=== PATIENT | female | born 1945 | race Caucasian/White ===

== ENCOUNTER 2019-05-27 12:46 | Emergency (ER) | payer MEDICARE, OTHER ==
[2019-05-27] MEDS ORDERED: Nitroglycerin 0.4 MG Tab.SL SL ONE (12:58)
[2019-05-27] MEDS ORDERED: Sodium Chloride 0.9% 1,000 ML IV ONE (13:03)
--- NOTE | 2019-05-27 13:40 | EDM.PDOC ---
ED HPI GENERAL MEDICAL PROBLEM - General Chief Complaint: Chest Pain Stated Complaint: MAYBE HEART ATTACK Time Seen by Provider: 05/27/19 13:37 Source of Information: Reports: Patient History Limitations: Reports: No Limitations - History of Present Illness INITIAL COMMENTS - FREE TEXT/NARRATIVE: sudden onset mid chest heaviness starting from her back going to the front with sweating about 1 1/2 hours ago. denies prior h/o heart problems. been using lot of motrin post dental procedures last week. Middle Chest Pain Score (Numeric/FACES): 5 - Related Data Allergies Allergy/AdvReac Type Severity Reaction Status Date / Time cefdinir [From Omnicef] Allergy Unknown Hives Verified 05/27/19 14:32 codeine Allergy Unknown ITCHING,INT Verified 05/27/19 14:32 OLERENCE Salicylates * [Salicylates] AdvReac Unknown GI Upset Verified 05/27/19 14:32 Home Meds: Home Meds Ibuprofen 400 mg PO ASDIRECTED PRN 05/27/19 [History] Levothyroxine 75 mcg PO DAILY 05/27/19 [History] atorvaSTATin [Lipitor] 40 mg PO BEDTIME 05/27/19 [History] ED ROS GENERAL - Review of Systems Review Of Systems: Comprehensive ROS is negative, except as noted in HPI. ED EXAM, GENERAL - Physical Exam Exam: See Below Exam Limited By: No Limitations General Appearance: Alert, WD/WN, Anxious, Moderate Distress Ears: Hearing Grossly Normal Throat/Mouth: Normal Voice, No Airway Compromise Head: Atraumatic Neck: Non-Tender, Full Range of Motion Respiratory/Chest: No Respiratory Distress, Rhonchi Cardiovascular: Regular Rate, Rhythm GI/Abdominal: Soft, Non-Tender Neurological: Alert, Oriented, Normal Cognition, Normal Gait, No Motor/Sensory Deficits Psychiatric: Flat Affect Skin Exam: Warm, Dry, Normal Color Lymphatic: No Adenopathy Course - Vital Signs Last Recorded V/S: Last Vital Signs Temp 35.7 C L 05/27/19 12:47 Pulse 55 L 05/27/19 12:47 Resp 14 05/27/19 12:47 BP 112/64 05/27/19 13:05 Pulse Ox 100 05/27/19 12:47 - Orders/Labs/Meds Orders: Active Orders 24 hr Category Date Time Status EKG Documentation Completion [RC] STAT Care 05/27/19 13:01 Active Chest w Cont [CT] Urgent Exams 05/27/19 14:07 Taken Labs: Laboratory Tests 05/27/19 05/27/19 05/27/19 Range/Units 12:59 12:59 12:59 WBC 8.7 (5.0-10.0) 10^3/uL RBC 5.05 (4.2-5.4) 10^6/uL Hgb 14.7 (12.0-16.0) g/dL Hct 43.7 (37.0-47.0) % MCV 86.5 (80-100) fL MCH 29.1 (27.0-34.0) pg MCHC 33.6 (33.0-35.0) g/dL Plt Count 398 (150-450) 10^3/uL Neut % (Auto) 34.2 L (42.2-75.2) % Lymph % (Auto) 48.4 (20.5-50.1) % [place] % (Auto) 15.4 H (2-8) % Eos % (Auto) 1.5 (1.0-3.0) % Baso % (Auto) 0.5 (0.0-1.0) % PT (9.0-12.0) SEC INR (0.9-1.2) APTT (22.0-34.0) SEC D-Dimer, Quantitative 530 H (0-400) ng/mL Sodium 138 (135-145) mmol/L Potassium 3.2 L (3.6-5.0) mmol/L Chloride 103 (101-111) mmol/L Carbon Dioxide 24.0 (21.0-31.0) mmol/L Anion Gap 14.2 BUN 12 (7-18) mg/dL Creatinine 0.8 (0.6-1.3) mg/dL Est Cr Clr Drug Dosing 55.70 mL/min Estimated GFR (MDRD) > 60 BUN/Creatinine Ratio 15.00 Glucose 114 H (74-105) mg/dL Calcium 9.7 (8.4-10.2) mg/dl Total Bilirubin 0.4 (0.2-1.0) mg/dL AST 21 (10-42) IU/L ALT 21 (10-60) IU/L Alkaline Phosphatase 70 (42-121) IU/L Troponin I < 0.02 (0.00-0.02) ng/ml Total Protein 7.7 (6.7-8.2) g/dl Albumin 4.4 (3.2-5.5) g/dl Globulin 3.3 Albumin/Globulin Ratio 1.33 /12/07 Range/Units 12:59 WBC (5.0-10.0) 10^3/uL RBC (4.2-5.4) 10^6/uL Hgb (12.0-16.0) g/dL Hct (37.0-47.0) % MCV (80-100) fL MCH (27.0-34.0) pg MCHC (33.0-35.0) g/dL Plt Count (150-450) 10^3/uL Neut % (Auto) (42.2-75.2) % Lymph % (Auto) (20.5-50.1) % [place] % (Auto) (2-8) % Eos % (Auto) (1.0-3.0) % Baso % (Auto) (0.0-1.0) % PT 9.3 (9.0-12.0) SEC INR 0.9 (0.9-1.2) APTT 23.0 (22.0-34.0) SEC D-Dimer, Quantitative (0-400) ng/mL Sodium (135-145) mmol/L Potassium (3.6-5.0) mmol/L Chloride (101-111) mmol/L Carbon Dioxide (21.0-31.0) mmol/L Anion Gap BUN (7-18) mg/dL Creatinine (0.6-1.3) mg/dL Est Cr Clr Drug Dosing mL/min Estimated GFR (MDRD) BUN/Creatinine Ratio Glucose (74-105) mg/dL Calcium (8.4-10.2) mg/dl Total Bilirubin (0.2-1.0) mg/dL AST (10-42) IU/L ALT (10-60) IU/L Alkaline Phosphatase (42-121) IU/L Troponin I (0.00-0.02) ng/ml Total Protein (6.7-8.2) g/dl Albumin (3.2-5.5) g/dl Globulin Albumin/Globulin Ratio Meds: Medications Discontinued Medications Generic Name Dose Route Start Last Admin Trade Name Zainq PRN Reason Stop Dose Admin Al Hydroxide/Mg Hydroxide 30 ml 05/27/19 15:22 05/27/19 15:39 Gi Cocktail PO 05/27/19 15:23 30 ml ONETIME ONE Administration Sodium Chloride 1,000 mls @ 999 mls/hr 05/27/19 13:03 05/27/19 13:32 Normal Saline IV 05/27/19 14:03 999 mls/hr .BOLUS ONE Administration Iopamidol 100 ml 05/27/19 13:55 05/27/19 14:58 Isovue-370 (76%) IVPUSH 05/27/19 13:56 63 ml ONETIME ONE Administration Morphine Sulfate 2 mg 05/27/19 13:55 05/27/19 14:08 Morphine IVPUSH 05/27/19 13:56 2 mg ONETIME ONE Administration Nitroglycerin 0.4 mg 05/27/19 12:58 05/27/19 13:05 Nitrostat SL 05/27/19 12:59 0.4 mg ONETIME ONE Administration Ondansetron HCl 4 mg 05/27/19 13:56 05/27/19 14:05 Zofran IVPUSH 05/27/19 13:57 4 mg ONETIME ONE Administration - Re-Assessments/Exams Free Text/Narrative Re-Assessment/Exam: 05/27/19 15:46 results discussed with pt who states has been taking alot of motrin for her tooth. 05/27/19 15:57 s/p GI cocktail = better Departure - Departure Time of Disposition: 15:59 Disposition: Home, Self-Care 01 Condition: Good Clinical Impression: Atypical chest pain Gastroesophageal reflux disease Qualifiers: Esophagitis presence: with esophagitis Qualified Code(s): K21.0 - Gastro- esophageal reflux disease with esophagitis Instructions: Nonspecific Chest Pain, [id number] Forms: ED Department Discharge Additional Instructions: 1) rest 2) follow up at clinic for STRESS TEST, ECHOCARDIOGRAM, HOLTER MONITOR 3) recheck if there is any change or concern rx given; vicodin 5/325mg bid to tid prn x 12 Sepsis Event Note - Evaluation Sepsis Screening Result: No Definite Risk - Focused Exam Vital Signs: Vital Signs Temp Pulse Resp BP BP Pulse Ox 05/27/19 13:05 112/64 05/27/19 12:47 35.7 C L 55 L 14 112/64 100 Date Exam was Performed: 05/27/19 Time Exam was Performed: 15:57 - My Orders Last 24 Hours: My Active Orders 05/27/19 13:01 EKG Documentation Completion [RC] STAT 05/27/19 14:07 Chest w Cont [CT] Urgent - Assessment/Plan Last 24 Hours: My Active Orders 05/27/19 13:01 EKG Documentation Completion [RC] STAT 05/27/19 14:07 Chest w Cont [CT] Urgent
[2019-05-27 13:41] LABS: ANION GAP 14.2; CHLORIDE,CL 103 mmol/L (101-111); SODIUM,NA 138 mmol/L (135-145)
[2019-05-27] MEDS ORDERED: Morphine 2 MG/ML Syringe IVPUSH ONE (13:55)
[2019-05-27] MEDS ORDERED: Iopamidol 755 Mg/ML 100 ML Bottle IVPUSH ONE (13:55)
[2019-05-27] MEDS ORDERED: Ondansetron 4 MG/2 ML SDV IVPUSH ONE (13:56)
[2019-05-27] MEDS ORDERED: GI Cocktail Oral Solution 30 ML PO ONE (15:22)
== END 2019-05-27 16:10 | disposition home or self-care (01) ==
LOC: DL.ED 12:46
DX: K21.0 Gastro-esophageal reflux disease with esophagitis (principal); Z88.5 Allergy status to narcotic agent; Z88.8 Allergy status to other drugs, medicaments and biological substances; Z79.899 Other long term (current) drug therapy
CPT/HCPCS: 36415; 71260; 80053; 84484; 85025; 85379; 85610; 85730; 93005; 96361; 96374; 96375; 99285; A9270; J2270; J2405; J7030; Q9967

== ENCOUNTER 2020-08-01 13:48 | Emergency (ER) | payer MEDICARE, OTHER ==
--- NOTE | 2020-08-01 14:57 | CR ---
PROCEDURE INFORMATION: Exam: XR Left Wrist Exam date and time: 08/01/2020 2:24 PM Age: 74 years old Clinical indication: Injury or trauma; Fall; Blunt trauma (contusions or hematomas); Wrist; Left; Additional info: Fall, left wrist pain /defomity TECHNIQUE: Imaging protocol: XR Left wrist. Views: 3 or more views. COMPARISON: No relevant prior studies available. FINDINGS: Bones/joints: Minimally displaced and comminuted intra-articular fractures of the distal left radius and ulna. Dorsal angulation the distal fragments. Bones are demineralized. Resection arthroplasty 1st CMC joint and STT joint. Chondrocalcinosis in the ulnocarpal and radiocarpal joints. Soft tissues: Soft tissue swelling IMPRESSION: Minimally displaced and comminuted intra-articular fractures of the distal left radius and ulna.
--- NOTE | 2020-08-01 15:01 | EDM.PDOC ---
ED HPI GENERAL MEDICAL PROBLEM - General Chief Complaint: Upper Extremity Injury/Pain Stated Complaint: [id number] THINKS BROKE LEFT WRIST AT [employer] Time Seen by Provider: 08/01/20 15:29 Source of Information: Reports: Patient, RN, RN Notes Reviewed History Limitations: Reports: No Limitations - History of Present Illness INITIAL COMMENTS - FREE TEXT/NARRATIVE: John is a 74 y/o female who presents to the ED via personal vehicle with complaints of left wrist pain and deformity following a fall. The patient reports her injury occurred about one hour prior to presentation to this facility. She has no history of injury to the affected extremity but she has been told he has osteoporosis. She has not taken any medication for the pain, which she characterizes as sharp. She denies loss of motor or sensory function to the left wrist but notes significant pain with flexion and extension of the wrist. - Related Data Allergies Allergy/AdvReac Type Severity Reaction Status Date / Time cefdinir [From Omnicef] Allergy Unknown Hives Verified 05/27/19 14:32 codeine Allergy Unknown ITCHING,INT Verified 05/27/19 14:32 OLERENCE Salicylates * [Salicylates] AdvReac Unknown GI Upset Verified 05/27/19 14:32 Home Meds: Home Meds Ibuprofen 400 mg PO ASDIRECTED PRN 05/27/19 [History] Levothyroxine 75 mcg PO DAILY 05/27/19 [History] atorvaSTATin [Lipitor] 40 mg PO BEDTIME 05/27/19 [History] Past Medical History Cardiovascular History: Reports: High Cholesterol Respiratory History: Reports: None Gastrointestinal History: Reports: None Genitourinary History: Reports: None VALUATION MANAGER History: Reports: None Musculoskeletal History: Reports: None Neurological History: Reports: None Psychiatric History: Reports: None Endocrine/Metabolic History: Reports: Hypothyroidism Hematologic History: Reports: None Immunologic History: Reports: None Oncologic (Cancer) History: Reports: None Dermatologic History: Reports: None - Past Surgical History HEENT Surgical History: Reports: Other (See Below) Other HEENT Surgeries/Procedures: Teeth pulled May 21, 2019 and denture placed. Social & Family History - Caffeine Use Caffeine Use: Reports: Coffee Review of Systems - Review of Systems Review Of Systems: Comprehensive ROS is negative, except as noted in HPI. ED EXAM, GENERAL - Physical Exam Exam: See Below Exam Limited By: No Limitations General Appearance: Alert, Mild Distress (Left wrist pain) Eye Exam: Bilateral Eye: EOMI, Normal Inspection, PERRL (3mm) Throat/Mouth: Normal Inspection, Normal Oropharynx, Normal Voice, No Airway Compromise Head: Atraumatic, Normocephalic Respiratory/Chest: No Respiratory Distress, Lungs Clear, Normal Breath Sounds, No Accessory Muscle Use, Chest Non-Tender Cardiovascular: Normal Peripheral Pulses, Regular Rate, Rhythm, No Edema, No Gallop, No JVD, No Murmur, No Rub Peripheral Pulses: 2+: Radial (L), Radial (R) GI/Abdominal: Normal Bowel Sounds, Soft, Non-Tender, No Distention, No Mass, Pelvis Stable (Female) Exam: Deferred Rectal (Female) Exam: Deferred Back Exam: Normal Inspection, Full Range of Motion Extremities: Normal Capillary Refill, Joint Swelling (To left wrist), Arm Pain (Deformity to left wrist; Hematoma to left upper arm), Limited Range of Motion (To left wrist), Increased Warmth (To left wrist). No: Mottled, Pallor, Redness Neurological: Alert, Oriented, CN II-XII Intact, Normal Cognition, Normal Gait, Normal Reflexes, No Motor/Sensory Deficits Psychiatric: Normal Affect, Normal Mood Skin Exam: Warm, Dry, Intact, Ecchymosis (To left wrist). No: Erythema, Mottled, Pallor, Petechiae ED TRAUMA EXTREMITY PROCEDURES - Splinting Left Upper Extremity Splint Site: Left wrist Pre-Procedure NV Status: Normal Post-Procedure NV Status: Normal Splint Material: Fiberglass, Sling Splint Design: Sugar Tong Applied & Form Fitted By: Provider Provider Post-Splint Application NV Check: NV Status Normal Complications: No Course - Vital Signs Last Recorded V/S: Last Vital Signs Temp 97.8 F 08/01/20 15:54 Pulse 81 08/01/20 15:54 Resp 18 08/01/20 15:54 BP 149/83 H 08/01/20 15:54 Pulse Ox 97 08/01/20 15:54 - Orders/Labs/Meds Meds: Medications Discontinued Medications Generic Name Dose Route Start Last Admin Trade Name Freq PRN Reason Stop Dose Admin Hydromorphone HCl 1 mg 08/01/20 15:34 08/01/20 15:39 Hydromorphone 1 Mg/Ml Syringe IM 08/01/20 15:35 1 mg ONETIME ONE Administration - Radiology Interpretation Free Text/Narrative:: [facility] Final Radiology Report Call: [phone] assistance Online chat: [email or web address] Name: JOHN MCCAULEY Age: 74Years F Date: 08/01/2020 SSN: -- : [id number] Study: CR WRIST COMP MIN 3V LT Requesting Physician: Pamela Bautista Images: 3 Addl Studies: Provided Clinical History: fall, left wrist pain /defomity Contrast: Contrast Medium: Contrast Amount: Contrast Method: CONFIDENTIALITY STATEMENT This report is intended only for use by the referring physician, and only in accordance with law. If you received this in error, call [phone]. Page 1 of 1 PROCEDURE INFORMATION: Exam: XR Left Wrist Exam date and time: 08/01/2020 2:24 PM Age: 74 years old Clinical indication: Injury or trauma; Fall; Blunt trauma (contusions or hematomas); Wrist; Left; Additional info: Fall, left wrist pain /defomity TECHNIQUE: Imaging protocol: XR Left wrist. Views: 3 or more views. COMPARISON: No relevant prior studies available. FINDINGS: Bones/joints: Minimally displaced and comminuted intra-articular fractures of the distal left radius and ulna. Dorsal angulation the distal fragments. Bones are demineralized. Resection arthroplasty 1st CMC joint and STT joint. Chondrocalcinosis in the ulnocarpal and radiocarpal joints. Soft tissues: Soft tissue swelling IMPRESSION: Minimally displaced and comminuted intra-articular fractures of the distal left radius and ulna. Thank you for allowing us to participate in the care of your patient. Dictated and Authenticated by: Martine Crenshaw MD 08/01/2020 2:57 PM Central Time ([place] & [place]) - Re-Assessments/Exams Free Text/Narrative Re-Assessment/Exam: 08/01/20 Xray of left wrist reveals minimally displaced and comminuted intra-articular fractures of the distal left radius and ulna. Findings of examination and imaging reviewed with patient. Dilaudid 1mg IM administered prior to reduction and splinting. Sugar-tong splint with flexion applied to left upper extremity without complication. Case discussed with Dr Lorenzo, orthopedic surgeon at [facility] in [place] who states he will see patient in clinic on August 04 for consult. Supportive cares discussed with patient. Patient verbalized understanding and agreement with the plan of care. Departure - Departure Time of Disposition: 16:20 Disposition: Home, Self-Care 01 Condition: Good Clinical Impression: Fracture of radius and ulna Qualifiers: Encounter type: initial encounter Fracture type: closed Laterality: left Qualified Code(s): S52.92XA - Unspecified fracture of left forearm, initial encounter for closed fracture - Discharge Information *PRESCRIPTION DRUG MONITORING PROGRAM REVIEWED*: Not Applicable *COPY OF PRESCRIPTION DRUG MONITORING REPORT IN PATIENT [facility]: Not Applicable Instructions: How To Use a Sling, [id number], Wrist Fracture Treated With Immobilization, [id number] Referrals: PCP,None [Primary Care Provider] - Forms: ED Department Discharge Additional Instructions: Rx: Percocet 1.) Follow up with orthopedic surgeon for fracture; Dr. Lorenzo at [facility] in [place] has been told about your case, he will see you on Monday if you call his clinic to make an appointment. 2.) You may take an extra dose of Tylenol with the Percocet. 3.) Sleep with your arm elevated on pillow; you may use a sling while up. 4.) Keep splint in place, should you develop loss of sensation, numbness, or tingling to the fingers or wrist return to the emergency department.
[2020-08-01] MEDS ORDERED: HYDROmorphone 1 MG/ML Syringe IM ONE (15:34)
== END 2020-08-01 17:02 | disposition home or self-care (01) ==
LOC: DL.ED 13:48
DX: S52.572A Other intraarticular fracture of lower end of left radius, initial encounter for closed fracture (principal); S52.602A Unspecified fracture of lower end of left ulna, initial encounter for closed fracture; E78.00 Pure hypercholesterolemia, unspecified; E03.9 Hypothyroidism, unspecified; Z79.899 Other long term (current) drug therapy; Z88.1 Allergy status to other antibiotic agents; Z88.5 Allergy status to narcotic agent; Z88.8 Allergy status to other drugs, medicaments and biological substances
CPT/HCPCS: 29125; 73110-LT; 96372; 99283-25; 99284; J1170

== ENCOUNTER 2023-09-13 18:55 | Emergency (ER) | payer MEDICARE, OTHER ==
[2023-09-13] MEDS: Orphenadrine 60 MG/2 ML Inj IM ONE (20:11)
[2023-09-13] MEDS: oxyCODONE 5 MG Tab PO ONE (21:50)
== END 2023-09-13 21:58 | disposition home or self-care (01) ==
LOC: DL.ED 18:55
DX: S92.412A Displaced fracture of proximal phalanx of left great toe, initial encounter for closed fracture (principal); E78.00 Pure hypercholesterolemia, unspecified; I25.2 Old myocardial infarction; E03.9 Hypothyroidism, unspecified; Z95.5 Presence of coronary angioplasty implant and graft; Z79.899 Other long term (current) drug therapy; Z79.890 Hormone replacement therapy; Z88.5 Allergy status to narcotic agent; Z88.1 Allergy status to other antibiotic agents; Z88.8 Allergy status to other drugs, medicaments and biological substances; X50.1XXA Overexertion from prolonged static or awkward postures, initial encounter
CPT/HCPCS: 73620-LT; 96372; 99283; A9270-GY; J2360

== ENCOUNTER 2024-04-07 18:36 | Emergency (ER) | payer MEDICARE, OTHER ==
[2024-04-07] MEDS ORDERED: Sodium Chloride 0.9% 10 ML Syringe FLUSH PRN (19:03)
[2024-04-07] MEDS: Aspirin 81 MG Tab.Chew PO ONE (19:25)
[2024-04-07 19:38] LABS: BASOPHILS PERCENT AUTO 0.5 % (0.0-1.0); EOSINOPHILS PERCENT AUTO 2.8 % (1.0-3.0); HEMATOCRIT 41.7 % (37.0-47.0); HEMOGLOBIN 13.9 g/dL (12.0-16.0); LYMPHOCYTES PERCENT AUTO 43.1 % (20.5-50.1); MEAN CORPUSCULAR HGB CONC 33.3 g/dL (33.0-35.0); MEAN CORPUSCULAR VOLUME 86.9 fL (80-100); MONOCYTES PERCENT AUTO 10.9 % (2-8); NEUTROPHILS PERCENT AUTO 42.7 % (42.2-75.2); PLATELET COUNT,PLT 415 10^3/uL (150-450); WHITE BLOOD CELL COUNT,WBC 8.1 10^3/uL (5.0-10.0)
[2024-04-07 20:01] LABS: A/G RATIO 1.2; ANION GAP 13.7 mEq/L (7-13); BILIRUBIN TOTAL 0.3 mg/dL (0.2-1.0); CALCIUM 9.5 mg/dL (8.5-10.1); CREATININE 0.83 mg/dL (0.55-1.02); EST CRCL DRUG DOSING (CG) 47.7 mL/min; MAGNESIUM 1.6 mg/dL (1.8-2.4); POTASSIUM,K 3.7 mmol/L (3.5-5.1); PROTEIN TOTAL,TP 7.4 g/dL (6.4-8.2); PROTHROMBIN TIME 10.2 SEC (9.0-12.0)
== END 2024-04-07 22:10 | disposition left against medical advice (07) ==
LOC: DL.ED 18:36
DX: I10 Essential (primary) hypertension (principal); I25.2 Old myocardial infarction; E78.00 Pure hypercholesterolemia, unspecified; E03.9 Hypothyroidism, unspecified; F17.210 Nicotine dependence, cigarettes, uncomplicated; Z88.5 Allergy status to narcotic agent; Z88.8 Allergy status to other drugs, medicaments and biological substances; Z79.890 Hormone replacement therapy; Z79.899 Other long term (current) drug therapy
CPT/HCPCS: 36415; 71046; 80053; 83690; 83735; 83880; 84484; 85025; 85379; 85610; 85730; 87428; 93005; 96365; 99285; A9270; J3475